=== PATIENT | female | born 1980 | race Caucasian/White ===

== ENCOUNTER 2017-02-28 20:04 | Emergency (ER) | payer SELFPAY ==
[2017-02-28 20:21] VITALS: BP 110/65
--- NOTE | 2017-02-28 20:25 | UC ---
Knee Pain HPI - HPI Summary HPI Summary: complait of right knee pain that started this morning started swelling today and then started to turn red and hot knee is painful constantly and worse with movement pain is in the front of her knee was in the water with her children and cut her leg on saturday hasn't taken any medication for pain today denies any trauma to her knee - History of Current Complaint Chief Complaint: UCLowerExtremity Stated Complaint: RIGHT KNEE PAIN/SWELLING Time Seen by Provider: 02/28/17 20:17 Hx Obtained From: Patient - Allergies/Home Medications Allergies/Adverse Reactions: Allergies Allergy/AdvReac Type Severity Reaction Status Date / Time No Known Allergies Allergy Verified 02/28/17 20:14 PMH/Surg Hx/FS Hx/Imm Hx Previously Healthy: Yes - Surgical History Surgical History: None - Family History Known Family History: Negative: Cardiac Disease, Hypertension, Diabetes - Social History Occupation: Employed Full-time Lives: With Family Alcohol Use: Rare Substance Use Type: None Smoking Status (MU): Never Smoked Tobacco Review of Systems Constitutional: Negative Skin: Rash Eyes: Negative ENT: Negative Respiratory: Negative Cardiovascular: Negative Gastrointestinal: Negative Genitourinary: Negative Motor: Negative Neurovascular: Negative Musculoskeletal: Other: - right knee pain Neurological: Negative Psychological: Negative All Other Systems Reviewed And Are Negative: Yes Physical Exam Triage Information Reviewed: Yes Appearance: No Pain Distress, Well-Nourished Vital Signs: Initial Vital Signs Temp 98.6 F 02/28/17 20:08 Pulse 77 02/28/17 20:08 Resp 16 02/28/17 20:08 BP 110/65 02/28/17 20:08 Pulse Ox 100 02/28/17 20:08 Vital Signs Reviewed: Yes Eyes: Positive: Conjunctiva Clear ENT: Positive: Pharynx normal, TMs normal Neck: Positive: No Lymphadenopathy Respiratory: Positive: Lungs clear, Normal breath sounds, No respiratory distress, No accessory muscle use Cardiovascular: Positive: RRR, No Murmur, Pulses Normal Abdomen Description: Positive: Nontender, Soft Bowel Sounds: Positive: Present Musculoskeletal Exam: Normal Musculoskeletal: Positive: Other: - right knee - slight edema over patella only Neurological: Positive: Alert Psychological Exam: Normal Skin Exam: Other - front of right knee- 4x4cm area of erythema and slight edema Knee Pain Course/Dx - Course Course Of Treatment: exam completed. pt appears to have celluitis in the front of her right knee- no other edema or pain in any other part of her knee. will start treatment tonight. discussed that if knee symptom do not improve in the next 24 hours to seek care in the emergency department and pt states understanding - Differential Dx/Diagnosis Differential Diagnosis/HQI/PQRI: Cellulitis, Gout, Infection Provider Diagnoses: cellulitis right knee Discharge - Discharge Plan Condition: Stable Disposition: HOME Patient Education Materials: Cellulitis (ED) Referrals: [facility] [place] [facility] [Outside] Additional Instructions: Please start antibiotic as directed Increase fluids and rest Take acetaminophen or ibuprofen for fever or pain If the swelling in your knee increases, pain and redness increases or you get a fever in the next 24 hours you must proceed to the emergency room for further evaluation and treatment. Please review your discharge instructions.
[2017-02-28] MEDS ORDERED: Cephalexin CAP* 500 MG PO ONE (20:35)
== END 2017-02-28 20:48 | disposition home or self-care (01) ==
LOC: UCCORT 20:04
DX: L03.115 Cellulitis of right lower limb (principal)
CPT/HCPCS: 99212; A9270-GY; G0463

== ENCOUNTER 2017-03-07 20:31 | Emergency (ER) | payer SELFPAY ==
--- NOTE | 2017-03-07 21:26 | ED ---
Kya Billy Edward, scribed for Carlos Burns MD on 03/07/17 at 2108 . Lower Extremity - HPI Summary HPI Summary: 36 y/o female presents to ED c/o R knee infection starting last week. Pt was dx with cellulitis and placed on abx - took the last one an hour ago. Associated sx : laceration on R ankle. The R knee is still warm and has pain that is aggravated with weight bearing and stairs. Associated sx: R knee edema that has mostly resolved now. NKDA. - History of Current Complaint Chief Complaint: EDExtremityLower Stated Complaint: INFECTED RIGHT LEG Time Seen by Provider: 03/07/17 21:06 Hx Obtained From: Patient Onset/Duration: Weeks - 1 week ago Severity Currently: Mild Pain Intensity: 4 Pain Scale Used: 0-10 Numeric Associated Signs And Symptoms: Positive: Swelling, Knee Pain Aggravating Factor(s): Weight Bearing, Stairs - Allergies/Home Medications Allergies/Adverse Reactions: Allergies Allergy/AdvReac Type Severity Reaction Status Date / Time No Known Allergies Allergy Verified 02/28/17 20:14 PMH/Surg Hx/FS Hx/Imm Hx Previously Healthy: Yes - Surgical History Surgery Procedure, Year, and Place: None Infectious Disease History: No Infectious Disease History: Denies: Traveled Outside the [place] in Last 30 Days - Family History Known Family History: Negative: Cardiac Disease, Hypertension, Diabetes - Social History Occupation: Employed Full-time Lives: With Family Alcohol Use: Rare Hx Substance Use: No Substance Use Type: Reports: None Hx Tobacco Use: No Smoking Status (MU): Never Smoked Tobacco Review of Systems Constitutional: Negative Eyes: Negative ENT: Negative Cardiovascular: Negative Respiratory: Negative Gastrointestinal: Negative Genitourinary: Negative Positive: Arthralgia - R knee pain, Edema - R knee Skin: Other - R knee warm to touch. Laceration @ R ankle Neurological: Negative Psychological: Normal All Other Systems Reviewed And Are Negative: Yes Physical Exam Triage Information Reviewed: Yes Vital Signs On Initial Exam: Initial Vitals Temp Pulse Resp BP Pulse Ox 97.7 F 65 18 117/77 99 03/07/17 20:33 03/07/17 20:33 03/07/17 20:33 03/07/17 20:33 03/07/17 20:33 Vital Signs Reviewed: Yes Appearance: Positive: Well-Appearing, No Pain Distress Skin: Positive: Warm, Other - mild erythema over mid patella, no induration, no warmth Head/Face: Positive: Normal Head/Face Inspection Eyes: Positive: MICHELL ENT: Positive: Hearing grossly normal Neck: Positive: Supple Respiratory/Lung Sounds: Positive: Breath Sounds Present Cardiovascular: Positive: RRR Musculoskeletal: Positive: Strength/ROM Intact Neurological: Positive: Alert, Oriented to Person Place, Time, Normal Gait Diagnostics - Vital Signs Vital Signs Temp Pulse Resp BP Pulse Ox 03/07/17 20:36 97.8 F 65 18 117/77 99 03/07/17 20:33 97.7 F 65 18 117/77 99 - Laboratory Result Diagrams: 03/07/17 21:45 03/07/17 21:45 Lab Statement: Any lab studies that have been ordered have been reviewed, and results considered in the medical decision making process. Re-Evaluation - Re-Evaluation First Eval Comment: results d/w pt Lower Extremity Course/Dx - Course Assessment/Plan: 36 y/o female presents to ED c/o R knee infection starting last week. Pt was dx with cellulitis and placed on abx - took the last one an hour ago. Associated sx: laceration on R ankle. The R knee is still warm and has pain that is aggravated with weight bearing and stairs. Associated sx: R knee edema that has mostly resolved now. NKDA. Pt will be d/c home. - Diagnoses Provider Diagnoses: Knee pain Discharge - Discharge Plan Condition: Stable Disposition: HOME Patient Education Materials: Knee Pain (ED) Referrals: [facility] – [place] [facility] REFERR[facility] [Outside] Additional Instructions: TAKE MOTRIN FOR PAIN NEEDED. The documentation as recorded by the Kya walsh Edward accurately reflects the service I personally performed and the decisions made by me, Carlos Burns MD.
[2017-03-07 22:04] LABS: Hematocrit 39 % (35-47); Mean Corpuscular HGB Conc 34 g/dl (31-36); Mean Corpuscular Hemoglobin 29 pg (27-31); Mean Corpuscular Volume 86 fL (80-97); Mean Platelet Volume 9 um3 (7.4-10.4); Red Blood Count 4.51 10^6/ul (4.0-5.4); Red Cell Distribution Width 14 % (10.5-15); White Blood Count 9.8 10^3/ul (3.5-10.8)
[2017-03-07 22:18] LABS: BUN/Creatinine Ratio 24.6 (8-20); Calcium 9.5 mg/dL (8.6-10.3); EGFR African American 124.5 (>60); EGFR Non-African American 96.8 (>60)
[2017-03-07 22:20] LABS: Potassium 4.1 mmol/L (3.5-5.0)
[2017-03-07 22:43] VITALS: BP 114/71
== END 2017-03-07 22:40 | disposition home or self-care (01) ==
LOC: ED 20:31
DX: M25.561 Pain in right knee (principal)
CPT/HCPCS: 36415; 80048; 85025; 99282